=== PATIENT | female | born 1995 | race Caucasian/White ===

== ENCOUNTER → 2017-09-30 | Day surgery (SDC) | payer BC ==
[~2017-09-30] MED LIST: ACETAMINOPHEN/HYDROcodone 325 MG/5 MG TAB ONE; BUPIVACAINE/EPINEPHRINE 0.5% PF 30 ML VIAL ONE; KETOROLAC TROMETHAMINE 30 MG/ML (IVP) VIAL ONE; LACTATED RINGER'S 1000 ML INJ 1,000 ML ONE; MEPERIDINE HCL 25 MG/ML VIAL ONE; MIDAZOLAM HCL 2 MG/2 ML VIAL ONE; ONDANSETRON HCL 4 MG/2 ML VIAL IV PUSH ONE; PROPOFOL 200 MG/20 ML AMP IV ONE; ceFAZolin 2 GM PREMIX 50 ML ONE
--- NOTE | 2017-09-30 13:40 | TN ---
cc: Gera Mireles MD DATE OF SURGERY: 09/30/2017 PREOPERATIVE DIAGNOSIS: Melanoma, left clavicle, intermediate thickness. POSTOPERATIVE DIAGNOSIS: Melanoma, left clavicle, intermediate thickness. PROCEDURE PERFORMED: 1. Wide excision of left clavicle melanoma with intermediate closure of wound, 2 x 8 cm. 2. Left axillary sentinel lymph node biopsy. ATTENDING SURGEON: Gera Mireles MD PROCESS IMPROVEMENT SPECIALIST: Staff. ANESTHESIA: General. BLOOD LOSS: Less than 10 mL COMPLICATIONS: None. FINDINGS: A 2 x 8 cm elliptical incision over the left clavicle closed with the minimal tension with a left axillary sentinel lymph node, 3 lymph nodes removed, hot and palpable, likely reactive. INDICATIONS FOR PROCEDURE: The patient is a 22-year-old female with a family history of melanoma, who was recently just diagnosed with an intermediate thickness melanoma of the left clavicular skin. This was biopsied on a shave biopsy approximately 1 month ago. The patient was referred for surgical oncology for wide excision as well as consideration of sentinel node biopsy. After discussion with the patient and the patient's family about the treatment recommendations including wide excision and sentinel lymph node biopsy, they agreed to undergo the procedure. Risks, benefits and alternatives were discussed prior to the procedure. PROCEDURE IN DETAIL: The patient underwent lymphoscintigraphy, which did show lymph nodes in the left axilla, mapping only to this location. The patient was then taken to the operating room and placed in a supine position, placed under general anesthesia. The patient's left chest wall, neck and left axilla were prepped and draped in a sterile fashion. Timeout was performed. We instilled local anesthetic into the area of the skin below the axillary hairline on the left and made approximately a 4 cm incision with a 15 blade scalpel. Using Bovie electrocautery, we dissected subcutaneous tissue and opened the clavipectoral fascia. A self-retaining retractor and appendiceal retractor were placed for better exposure. We were able to access the axillary lymph nodes. These were palpated. There were actually 3 areas of palpable nodes that were brought into the field gently, and these were noted to be hot on the NeoProbe, as well as soft and palpable. Grossly, appeared to be reactive. They were all passed as individual specimens for processing. The background was negligible radiation with no further palpable or grossly discernable nodes in the left axilla. We irrigated out the cavity with sterile saline until all suctioning was clear. We closed the clavipectoral fascia, once we ensured that we had no bleeding, with a running 3-0 Vicryl suture. We closed the skin with 4-0 Monocryl and Dermabond. We then turned our attention to the wide excision. An area over the left clavicular melanoma was marked 1 cm 360 degrees around the previous biopsy site. This was then marked and extended into a curvilinear incision to facilitate cosmetic closure and wound healing with the skin lines of tension at the base of the neck and over the clavicle. We instilled local anesthetic in a field-type block around this planned excision. Used a 15 blade scalpel, followed by Bovie electrocautery to incise the skin and subcutaneous tissue. We took the specimen off of the superficial fascia of the chest wall and overlying the clavicle with the Bovie electrocautery. A stitch marked the superior. This was passed off for permanent processing. We assured excellent hemostasis. We did a minimal amount of undermining approximately 1 cm around the wound and were able to close this with essentially 0 tension using 2-0 buried Vicryl sutures. We closed the skin with 4-0 Monocryl and Dermabond. The patient was discontinued from anesthesia and taken to the PACU in stable condition. The patient tolerated the procedure well. No apparent complications. All counts were correct. I was present and scrubbed for the entire procedure. MD BHUPINDER Bellamy/ROLY , 01:15 PM , 01:38 PM
== END | disposition home or self-care (01) ==
LOC: ESDC 07:28
PROVIDERS: ATTEND Surgery
DX: C41.3 Malignant neoplasm of ribs, sternum and clavicle (principal)
CPT/HCPCS: 00400; 01610; 11606; 12034; 38525; 88305; 88307; 88342; J0690; J1885; J2175; J2250; J2405; J3010; J7120; 88341